=== PATIENT | female | born 1985 | race Caucasian/White ===

== ENCOUNTER 2020-03-20 10:31 | Emergency (ER) | payer SELFPAY ==
[~2020-03-20] VITALS: Ht 167.6 cm; Wt 59.0 kg
--- NOTE | 2020-03-20 10:59 | Emergency Department Note ---
History of Present Illnes History of Present Illness Chief Complaint: General Medicine Complaints History of Present Illness This is a 34 year old female PATIENT IN FROM HOME WITH COMPLAINTS OF NECK PAIN; PATIENT STATES THAT SHE CHECKED INTO REHAB A COUPLE OF DAYS AGO, BUT WAS THEN SENT TO [facility] IN [place] FOR SEIZURES. PATIENT LEFT [facility] WITH HER EJ IV LINE ON 03/18/2020. PATIENT REPORTS THAT SHE USED HEROIN THROUGH HER EJ ABOUT 2-3 TIMES, THEN WENT TO [facility] YESTERDAY WHERE THEY REMOVED THE EJ. PATIENT IN NOW WITH COMPLAINTS OF PAIN IN HER NECK, MILD SWELLING AND BRUISING NOTED. PATIENT AFEBRILE, APPEARS ANXIOUS, VSS, ALERT AND ORIENTED, RESP EVEN AND NONLABORED, AMBULATORY WITHOUT ASSISTANCE. 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 Any updates have been documented here. Past Medical History Recent Fever: No Clinical Suspicion of Infectio: No New/Unexplained Change in Ment: No Other Medical History: PDA STAPH INFECTIONS METH ABUSE/OPIOID ABUSE Past Surgical History: Other Surgery: LITHOTRIPSY URETHERAL STONE REMOVAL Social History Smoking Cessation: Current every day smoker Counseling Performed: Yes Alcohol Use: Social Any Illegal Drug Use: Yes TB Exposure/Symptoms: No Physically hurt or threatened: No Family History Family history of heart diseas: No Other Last Tetanus: UNKNOWN Any Pre-Existing Lines (PICC,: No Review of Systems Review of Systems Constitutional: Reports no symptoms EENTM: Reports no symptoms Cardiovascular: Reports no symptoms Respiratory: Reports no symptoms Gastrointestinal: Reports no symptoms Genitourinary: Reports no symptoms Musculoskeletal: Reports no symptoms Integumentary: Reports as per HPI Neurological: Reports no symptoms Psychological: Reports no symptoms Endocrine: Reports no symptoms Hematological/Lymphatic: Reports no symptoms Physical Exam Related Data Allergies: Coded Allergies: No Known Allergies (Unverified , 02/06/12) Triage Vital Signs Vital Signs Date Time Temp Pulse Resp B/P (MAP) Pulse Ox O2 Delivery O2 Flow Rate FiO2 03/20/20 10:37 97.4 91 20 110/76 100 Room Air Vital signs reviewed: Yes Physical Exam CONSTITUTIONAL Constitutional: Present well-developed, Present well-nourished HENT HENT: Present normocephalic, Present atraumatic, Present oropharynx clear/moist, Present nose normal HENT L/R: Present left ext ear normal, Present right ext ear normal EYES Eyes: Reports PERRL, Reports conjunctivae normal NECK Neck: Present ROM normal, Present supple, Present other (MINIMAL SWELLING TO LEFT EJ SITE WITH MILD ECCHYMOSIS, MOD TENDERNESS, NO FLUCTUANCE) PULMONARY Pulmonary: Present effort normal, Present breath sounds normal CARDIOVASCULAR Cardiovascular: Present regular rhythm, Present heart sounds normal, Present capillary refill normal, Present normal rate; Absent murmur GASTROINTESTINAL Abdominal: Present soft, Present nontender, Present bowel sounds normal GENITOURINARY Genitourinary: Present exam deferred SKIN Skin: Present warm, Present dry MUSCULOSKELETAL Musculoskeletal: Present ROM normal NEUROLOGICAL Neurological: Present alert, Present oriented x 3, Present no gross motor or sensory deficits PSYCHOLOGICAL Psychological: Present mood/affect normal, Present judgement normal Assessment & Plan Medical Decision Making MDM SUPERFICIAL THROMBOPHLEBITIS BUT PT WITH IVDA THROUGH THE EJ AND H/O STAPH ABSCESSES - WILL COVER WITH BACTRIM Reassessment Reassessment DC HOME, BACTRIM DS X 10 D, F/U PCP, WARM COMPRESSES Assessment & Plan Final Impression: (1) Superficial thrombophlebitis Depart Disposition: HOME, SELF-CARE Last Vital Signs Date Time Temp Pulse Resp B/P (MAP) Pulse Ox O2 Delivery O2 Flow Rate FiO2 03/20/20 10:37 97.4 91 20 110/76 100 Room Air ALEXIS KISER MD Mar 20, 2020 10:59
--- OUTSIDE RECORDS SUMMARY | 2020-03-20 11:02 | XMS REPORT | Continuity of Care Document ---
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 Allergies, Adverse Reactions, Alerts This patient has no known allergies or adverse reactions. Medications This patient has no known medications. Procedures This patient has no known procedures. Results Test Description Test Time Test Comments Results Result Comments Source CHEST SINGLE (PORTABLE) [place] [id number] Patient Name: NILAY LAMAS MR #: [id number] : 1985 Age/Sex: 32/F Req #: [id number] Adm Physician: Ordered by: PJ MURRAY Report #: [id number] Location: ER Room/Bed: Procedure: [id number] DX/CHEST SINGLE (PORTABLE) Exam Date: Exam Time: REPORT STATUS: Signed PROCEDURE: A single AP view of the chest. COMPARISON: None. INDICATIONS: LEG PAIN, INFECTION FINDINGS: Lines/tubes: None. Lungs: The lungs are well inflated and clear. There is no evidence of pneumonia or pulmonary edema. Pleura: There is no pleural effusion or pneumothorax. Heart and mediastinum: The heart and the mediastinum are unremarkable. Bones: No acute bony abnormality. IMPRESSION: 1. No acute cardiopulmonary abnormalities. Angeles Ferguson M.D. Dictated by: Angeles Ferguson M.D. on 04/19/2017 at 18:54 Electronically approved by: Angeles Ferguson M.D. on 04/19/2017 at 18:54 Dictated By: ANGELES FERGUSON MD 53 Transcribed By: TEE on 04/19/171853 COPY TO: PJ MURRAY
== END 2020-03-20 11:03 | disposition home or self-care (01) ==
LOC: ER 10:47
DX: I80.8 Phlebitis and thrombophlebitis of other sites (principal); F15.10 Other stimulant abuse, uncomplicated; F11.10 Opioid abuse, uncomplicated; F17.210 Nicotine dependence, cigarettes, uncomplicated
CPT/HCPCS: 99283